=== PATIENT | male | born 1975 | race Caucasian/White ===

== ENCOUNTER 2018-02-13 11:32 | Emergency (ER) | payer BC, OTHER ==
[2018-02-13] MEDS ORDERED: 0.9 % SODIUM CHLORIDE 1,000 ML BAG IV ONE (11:42)
[2018-02-13] MEDS ORDERED: FENTANYL PF 100MCG/2ML VIAL IVP ONE ×2 (11:42→13:20)
[2018-02-13] MEDS ORDERED: ONDANSETRON HCL IV 4 MG/2 ML VIAL IVP ONE (11:42)
--- NOTE | 2018-02-13 11:44 | Emergency Department Record ---
History of Present Illness - General Chief Complaint: Fall Injury Stated Complaint: 20 foot fall Time Seen by Provider: 02/13/18 11:36 Source: Patient Mode of Arrival: Ambulatory Limitations: No limitations - History of Present Illness Initial Comments: 42 yo male presents ambulatory after a twenty foot fall from a ladder. He was up twenty feet climbing onto a roof and the ladder slid out from under him. He states he recalls the events. He is not on blood thinners. He does not think he hit his head but is unsure. His neck hurts but he states he has chronic neck and back pain. He has bilateral ankle pain, left knee, femur and hip pain into the pelvis. No current abdominal pain. He has been healthy in his usual state of health. MD Complaint: Fall -: Minutes(s) Fall From: Other (Ladder 20 feet) When Fall Occurred: Just prior to arrival Place Fall Occurred: Work Loss of Consciousness: None Prolonged Down Time?: No Symptoms Prior to Fall: None Location: Neck, Back, Pelvis Location - Extremities: Left: Forearm, Thigh, Knee, Ankle, Right: Ankle Severity: Moderate Quality: Aching Context: Other Associated Symptoms: Denies - [place] Coma Scale Eye Response: (4) Open spontaneously Motor Response: (6) Obeys commands Verbal Response: (5) Oriented [place] Total: 15 - Related Data Home Medications Medication Instructions Recorded Confirmed Last Taken No Home Med [NO HOME MEDS] 02/13/18 02/13/18 Unknown Allergies Allergy/AdvReac Type Severity Reaction Status Date / Time No Known Drug Allergies Allergy Verified 02/13/18 12:09 Review of Systems Constitutional: Denies: Chills, Fever, Weakness Eyes: Denies: Eye discharge ENT: Denies: Congestion, Throat pain Respiratory: Denies: Cough, Dyspnea Cardiovascular: Denies: Chest pain, Palpitations, Syncope Endocrine: Denies: Fatigue, Polydipsia, Polyuria Gastrointestinal: Denies: Abdominal pain, Diarrhea, Nausea, Vomiting Genitourinary: Denies: Dysuria, Frequency, Hematuria Musculoskeletal: Reports: Arthralgia, Back pain, Joint swelling, Myalgia, Neck pain Skin: Reports: Bruising Neurological: Denies: Headache, Numbness, Tremors, Weakness Psychiatric: Denies: Anxiety Hematological/Lymphatic: Denies: Easy bleeding, Easy bruising Physical Exam - General General Appearance: Alert, Oriented x3, Cooperative, No acute distress Limitations: No limitations - Head Head exam: Atraumatic, Normocephalic, Normal inspection Head exam detail: negative: Abrasion, Contusion, General tenderness, Hematoma - Eye Eye exam: Normal appearance, PERRL. negative: Conjunctival injection, Scleral icterus - ENT ENT exam: Normal exam, Mucous membranes moist, Normal orophraynx Ear exam: Normal external inspection Nasal Exam: Normal inspection Mouth exam: Normal external inspection Teeth exam: Normal inspection Throat exam: Normal inspection - Neck Neck exam: Normal inspection, Full ROM, Tenderness. negative: Meningismus - Respiratory Respiratory exam: Normal lung sounds bilaterally. negative: Accessory muscle use, Chest wall tenderness, Decreased breath sounds, Prolonged expiratory, Respiratory distress, Rhonchi, Stridor, Wheezes - Cardiovascular Cardiovascular Exam: Regular rate, Normal rhythm, Normal heart sounds Peripheral Pulses: 2+: Radial (R), Radial (L) - GI/Abdominal GI/Abdominal exam: Soft. negative: Distended, Guarding, Rebound, Rigid, Tenderness - Rectal Rectal exam: Deferred - exam: Deferred - Extremities Extremities exam: Joint swelling, Normal capillary refill, Tenderness. negative : Normal inspection Image of Full Body: 1 - tenderness, normal alignment 2 - tenderness, no deformity 3 - normal alignment, tender medial 4 - tender from IC to distal 1/3 of lateral thigh, mild swelling 5 - abrasion, tender, mild swelling 6 - tender, no step off - Back Back exam: Reports: Normal inspection - Neurological Neurological exam: Alert, Normal gait, Oriented X3. negative: Motor sensory deficit - Psychiatric Psychiatric exam: negative: Agitated, Anxious - Skin Skin exam: Dry, Intact, Normal color, Warm Course - Reevaluation(s) Reevaluation #1: Trauma Alert initiated given 20 foot fall. 02/13/18 11:35 02/13/18 12:25 No acute changes on the CBC,CMP,Lactic Acid, Alcohol 02/13/18 13:14 HCT is negative for acute injury The Chest CT is negative for acute injury The ABD/Pelvis CT no osseous injury. 2cm ill defined hypodense band like are high right liver lobe may represent liver small laceration Left Forearm is negative for acute injury 02/13/18 13:22 I explained to the patient even though the CT findings are small and mild any possible liver injury will need a trauma consultation that is not available at [facility] I recommend contacting a trauma center for a trauma consultation Radiology notified of need for copies [facility] notified need for trauma consult 02/13/18 13:36 I SW Trauma and the ED at [facility] Trauma PA and Dr Gómez The CT was explained as possible small laceration of 2cm high right side Trauma recommended TXA be given This was explained to the patient, recommendation for EMS STAT transfer to [facility] for Trauma evaluation. 02/13/18 13:45 Bilateral ankles XR negative Femur XR negative Medical Decision Making - Lab Data Result diagrams: 02/13/18 11:37 02/13/18 11:35 Disposition Disposition: Transfer Clinical Impression: Contusion, hip, Liver laceration, closed Fall Qualifiers: Encounter type: initial encounter Qualified Code(s): W19.XXXA - Unspecified fall, initial encounter Disposition: Acute Care Hospital Transfer Transfer To: [facility] Reason For Transfer: Fall, questionable liver laceration Accepting Physician: [facility] [place] Trauma Time Discussed w/Accepting Physician: 13:38 Condition: (2) Stable Forms: Patient Portal Access Time of Disposition: 13:21 Quality - Quality Measures Quality Measures: N/A - Blood Pressure Screening Does Patient Have Any of the Following: No Blood Pressure Classification: Pre-Hypertensive BP Reading Systolic Measurement: 128 Diastolic Measurement: 87 Screening for High Blood Pressure: < Pre-Hypertensive BP, F/U Documented > [ G8950] Pre-Hypertensive Follow-up Interventions: Referral to alternative/primary care provider.
[2018-02-13 11:55] LABS: BASO % 0.2 % (0-6); EOS % 0.4 % (0-6); GRAN % 64.7 % (47-80); HEMATOCRIT 43.9 % (42.0-52.0); HEMOGLOBIN 14.6 gm/dl (14.0-18.0); LYMPH % 25.6 % (16-45); MEAN CELL VOLUME 94.6 fl (81-97); MEAN CORPUSCULAR HEMOGLOBIN 31.5 pg (27-33); MEAN CORPUSCULAR HGB CONC 33.3 g/dl (32-36); MEAN PLATELET VOLUME 10.8 fl (7.4-10.4); MONO % 9.1 % (0-9); PLATELET COUNT 252 K/uL (130-400); RED BLOOD COUNT 4.64 M/uL (4.40-5.70); RED CELL DISTRIBUTION WIDTH 12.8 % (11.5-14.5); WHITE BLOOD COUNT W/O DIFF 9.3 K/uL (4.2-12.2)
[2018-02-13 12:03] LABS: BLOOD UREA NITROGEN 12 mg/dL (6-20); CREATININE 0.8 mg/dL (0.7-1.2); EST GLOMERULAR FILTRATION RATE > 60 mL/min
[2018-02-13 12:04] LABS: TOTAL PROTEIN 7.6 g/dL (6.6-8.7)
[2018-02-13 12:06] LABS: GLUCOSE,RANDOM 91 mg/dL (74-109); PROTHROMBIN TIME (PATIENT) 9.9 SECONDS (9.5-12.1)
[2018-02-13 12:08] LABS: ALT/SGPT 30 U/L (<41)
[2018-02-13 12:09] LABS: ALB/GLOB RATIO 1.6 (1.1-1.8); ALBUMIN 4.7 g/dL (4.0-5.0); ALKALINE PHOSPHATASE 57 U/L (40-129); AST/SGOT 29 U/L (10.0-50.0)
[2018-02-13 12:42] LABS: ABO GROUP O; ANTIBODY SCREEN NEGATIVE (NEGATIVE); RH TYPE NEGATIVE
[2018-02-13 12:50] LABS: URINE APPEARANCE CLEAR; URINE BILIRUBIN NEGATIVE (NEGATIVE); URINE BLOOD NEGATIVE (NEGATIVE); URINE COLOR YELLOW; URINE GLUCOSE (UA) NEGATIVE (NEGATIVE); URINE KETONE NEGATIVE (NEGATIVE); URINE LEUKOCYTE ESTERASE NEGATIVE (NEGATIVE); URINE NITRITE NEGATIVE (NEGATIVE); URINE PROTEIN NEGATIVE (NEGATIVE); URINE UROBILINOGEN 0.2 E.U./dL (0.20 - 1.00)
[2018-02-13] MEDS ORDERED: TRANEXAMIC ACID 1,000 MG in 0.9 % SODIUM CHLORIDE 500ML 500 ML IV ONE (13:31)
--- NOTE | 2018-02-16 14:31 | CT SCAN REPORT ---
EXAM: CT SCAN HEAD WO CONTRAST HISTORY: FALL FROM LADDER (20 FEET). TECHNIQUE: Routine noncontrast CT examination of the head. COMPARISON: No prior imaging of the head available for comparison. Same-day noncontrast CT of the cervical spine. FINDINGS: The ventricles and subarachnoid spaces are normal in size. No area of abnormally increased or decreased attenuation is noted throughout the brain substance. No abnormal extraaxial fluid collection nor skull fracture is seen. Several small retention cysts or less likely polyps are noted within the floor of the right maxillary sinus and there is a small retention cyst vs. polyp in the floor of the left maxillary sinus. The paranasal sinuses and mastoid air cells are otherwise clear. The orbits as visualized are unremarkable. IMPRESSION: 1. NO INTRACRANIAL ABNORMALITY NOR SKULL FRACTURE IDENTIFIED. 2. RETENTION CYSTS VS. POLYPS WITHIN THE MAXILLARY SINUSES. JOB NUMBER: [id number] [facility]TDD
--- NOTE | 2018-02-16 14:37 | CT SCAN REPORT ---
EXAM: CT SCAN CERVICAL SPINE WO CONTRAST HISTORY: 20 FOOT FALL FROM LADDER. LEFT-SIDED PAIN. TECHNIQUE: Thin-collimation helical CT examination of the cervical spine is performed in the axial plane without intravenous contrast. Coronal and sagittal reformatted images are generated and reviewed. COMPARISON: No prior imaging of the cervical spine available for comparison. Same day noncontrast CT examination of the head. Same day CT chest with contrast. FINDINGS: There is normal bone mineralization. The vertebral bodies are normal in alignment and height. No acute fracture, destructive bone lesion, nor prevertebral soft tissue swelling. There is posterior disc bulging and endplate spurring at the C6-C7 level with possible borderline stenosis. No gross osseous cervical spinal stenosis. The facet joints are grossly maintained. There is minor left neural foraminal narrowing at the C6-C7 level due to uncovertebral joint spurring. The neural foramina are otherwise patent. Three small retention cysts versus polyps are noted in the floor of the right maxillary sinus and there is a single retention cyst versus polyp in the floor of the left maxillary sinus. No cervical mass nor adenopathy is seen. Mild biapical lung scarring is present. IMPRESSION: 1. NO ACUTE FRACTURE, SUBLUXATION, NOR PREVERTEBRAL SOFT TISSUE SWELLING. MILD DEGENERATIVE CHANGES AT THE C6-C7 LEVEL. 2. RETENTION CYSTS VERSUS POLYPS WITHIN THE FLOORS OF THE MAXILLARY SINUSES. JOB NUMBER: [id number] MTDD
--- NOTE | 2018-02-16 14:46 | CT SCAN REPORT ---
EXAM: CT SCAN CHEST W CONTRAST HISTORY: LEFT-SIDED PAIN. 20-FOOT FALL FROM LADDER. TECHNIQUE: Contrast-enhanced helical CT examination of the chest, abdomen, and pelvis is performed including delayed images through the kidneys with 100 mL of Omnipaque-[address] see separate [address] abdomen and pelvis report. COMPARISON: Same day noncontrast CT of the cervical spine. Same day CT abdomen. FINDINGS: The heart is normal in size. The thoracic aorta is normal in caliber and without dissection. A small amount of residual thymic tissue is present. No mediastinal nor hilar mass/lymphadenopathy is seen. No mediastinal hematoma is identified. The central airways are clear. Mild biapical lung scarring is demonstrated. No lung consolidation is identified. Minor dependent atelectasis in each lung base. There are a few small calcified granulomata within the right lung with the largest in the posterior right lung base measuring 4 mm. No pleural or pericardial effusion. No definite osseous fracture. The adrenal glands are nonenlarged. There is a subtle, slightly irregularly marginated, linear hypodensity in the lateral aspect of the high right liver lobe extending towards the capsule. This measures approximately 10 x 20 mm. Diagnostic considerations include; small laceration or atypical hemangioma. No other focal hepatic lesion is seen. There is a too small to characterize 7 mm hypodense lesion in the anterolateral mid left kidney and a tiny 4 mm focus in the lateral right mid kidney. These are nonspecific but likely cysts. IMPRESSION: 1. NO DEFINITE CT EVIDENCE OF AN ACUTE INTRATHORACIC INJURY NOR ACUTE OSSEOUS FRACTURE. 2. SOMEWHAT LINEAR ILL-DEFINED HYPODENSITY IN THE HIGH RIGHT LIVER LOBE. THIS IS NONSPECIFIC. SMALL LACERATION IS NOT EXCLUDED. 3. TOO SMALL TO CHARACTERIZE HYPODENSE LESIONS WITHIN THE KIDNEYS ARE NONSPECIFIC BUT LIKELY CYSTS. JOB NUMBER: [id number] [facility]
--- NOTE | 2018-02-16 14:48 | RADIOLOGY REPORT ---
EXAM: FOREARM, LEFT HISTORY: PAIN POST 20-FOOT FALL FROM LADDER. TECHNIQUE: AP and lateral views of the left forearm. COMPARISON: None. ENCOUNTER: Initial. FINDINGS: There is normal bone mineralization. No fracture, dislocation, or destructive bone lesion is seen. The articular relations to the extent visualized are maintained. No focal soft tissue abnormality identified. IMPRESSION: NO ACUTE FRACTURE NOR DISLOCATION IDENTIFIED. JOB NUMBER: [id number] [facility]TDD
--- NOTE | 2018-02-16 14:49 | CT SCAN REPORT ---
EXAM: CT SCAN ABDOMEN/PELVIS W CONTRAST HISTORY: LEFT-SIDED PAIN. 20 FOOT FALL FROM LADDER. TECHNIQUE: Contrast-enhanced helical CT examination of the chest, abdomen, and pelvis is performed including delayed images through the kidneys with 100 mL of Omnipaque-[address] utilized. [address] see separate CT chest report. COMPARISON: No prior imaging of the abdomen nor pelvis available for comparison. FINDINGS: As seen on same-day CT chest examination, there is a somewhat linear irregularly-marginated hypodensity in the high lateral right liver lobe measuring approximately 2 cm in length extending toward the capsule. This measures approximately 8 mm in thickness. Diagnostic considerations include a small laceration/contusion or atypical hemangioma. No other focal lesion demonstrated within the liver. The spleen, pancreas, and adrenal glands are normal in appearance. Single too small to characterize hypodense lesions are noted within the kidneys. These are nonspecific but likely cysts. The gallbladder is unremarkable. No biliary ductal dilatation is seen. No intraabdominal nor retroperitoneal lymphadenopathy is identified. Minimal atherosclerosis of the distal abdominal aorta. The vasculature is otherwise normal in appearance. No intrapelvic mass, lymphadenopathy, or free pelvic fluid. No intrinsic urinary bladder abnormality noted. No gross bowel dilatation nor bowel wall thickening, though evaluation is somewhat limited by lack of oral contrast utilization. No free intraperitoneal air. No convincing acute osseous fracture. Linear lucency within the inferior left iliac bone is identified. A similar, though less pronounced, lucency is noted within the corresponding right iliac bone. These are consistent with nutrient foramina. No gross soft tissue hematoma is seen. IMPRESSION: 1. SUBTLE IRREGULARLY-MARGINATED LINEAR LUCENCY IN THE HIGH RIGHT LIVER LOBE. DIAGNOSTIC CONSIDERATIONS INCLUDE SMALL LACERATION/CONTUSION AND ATYPICAL HEMANGIOMA. 2. NO OTHER EVIDENCE OF ACUTE VISCERAL INJURY. 3. SINGLE TOO SMALL TO CHARACTERIZE HYPODENSE LESIONS IN THE KIDNEYS ARE NONSPECIFIC BUT LIKELY CYSTS. 4. NO CONVINCING ACUTE OSSEOUS INJURY. LINEAR LUCENCY WITHIN THE INFERIOR ILIAC BONES CONSISTENT WITH NUTRIENT FORAMINA. 5. NOT MENTIONED ABOVE IS POSTERIOR DISC BULGING AT THE C4-C5 LEVEL. JOB NUMBER: [id number] [facility]
--- NOTE | 2018-02-16 14:52 | RADIOLOGY REPORT ---
EXAM: ANKLE LEFT 3 VIEWS HISTORY: FALL FROM LADDER, ANKLE PAIN. TECHNIQUE: Three views of the left ankle. COMPARISON: None. FINDINGS: No acute fracture detected. The ankle mortise alignment appears intact. Small anterior tibiotalar osteophytes suggesting osteoarthrosis. IMPRESSION: NO EVIDENCE OF ACUTE LEFT ANKLE FRACTURE OR DISLOCATION. JOB NUMBER: [id number] [facility]
--- NOTE | 2018-02-16 14:53 | RADIOLOGY REPORT ---
EXAM: ANKLE RIGHT 3 VIEWS HISTORY: FALL FROM LADDER. TECHNIQUE: Three views of the right ankle. COMPARISON: None. FINDINGS: No acute fracture detected. Ankle mortise alignment appears intact. No significant degenerative changes. IMPRESSION: NO ACUTE OSSEOUS FINDINGS. JOB NUMBER: [id number] [facility]
--- NOTE | 2018-02-16 14:56 | RADIOLOGY REPORT ---
EXAM: FEMUR, LEFT HISTORY: FALL FROM LADDER, PAIN. TECHNIQUE: Frontal and lateral views of the left femur. COMPARISON: Same day CT abdomen and pelvis, 02/13/2018. FINDINGS: The left femur is incompletely visualized on this examination; the proximal third of the femur is not included on the field of view. This area is visualized on same day CT. No acute fracture involving the visualized portions of the femur. No definite radiographic soft tissue abnormality. Limited visualization of the knee without definite effusion or dislocation. IMPRESSION: NO ACUTE OSSEOUS FINDINGS INVOLVING THE VISUALIZED PORTIONS OF THE LEFT FEMUR. JOB NUMBER: [id number] [facility]TD[facility]
== END 2018-02-13 14:05 | disposition short-term general hospital (02) ==
LOC: ER 11:32
DX: S36.113A Laceration of liver, unspecified degree, initial encounter (principal); S70.02XA Contusion of left hip, initial encounter; S50.812A Abrasion of left forearm, initial encounter; M25.562 Pain in left knee; M54.2 Cervicalgia; M25.572 Pain in left ankle and joints of left foot; M25.571 Pain in right ankle and joints of right foot; M79.652 Pain in left thigh; M79.632 Pain in left forearm; W11.XXXA Fall on and from ladder, initial encounter; Y99.0 Civilian activity done for income or pay
CPT/HCPCS: 99285 ×2; 96376; 96365; 96375; 83605; 85025; 85730; 85610; 80053; 81003; 86900; 86901; 86850; 73610 ×2; 73552; 73090; 72125; 71260; 70450; 74177; G0480; Q9967; J2405; J3010; J3490; 80320; J7030; J7040

== ENCOUNTER 2018-05-08 04:39 | Emergency (ER) | payer OTHER ==
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
[2018-05-08] MEDS ORDERED: KETOROLAC 30 MG/ML VIAL IM ONE (05:04)
[2018-05-08 05:11] LABS: BASO % 0.2 % (0-6); EOS % 0.3 % (0-6); GRAN % 69.8 % (47-80); HEMOGLOBIN 14.1 gm/dl (14.0-18.0); LYMPH % 20.3 % (16-45); MEAN CELL VOLUME 91.9 fl (81-97); MEAN CORPUSCULAR HEMOGLOBIN 30.9 pg (27-33); MEAN CORPUSCULAR HGB CONC 33.6 g/dl (32-36); MEAN PLATELET VOLUME 10.2 fl (7.4-10.4); MONO % 9.4 % (0-9); PLATELET COUNT 300 K/uL (130-400); RED BLOOD COUNT 4.57 M/uL (4.40-5.70); RED CELL DISTRIBUTION WIDTH 12.8 % (11.5-14.5); WHITE BLOOD COUNT W/O DIFF 10.1 K/uL (4.2-12.2)
[2018-05-08 05:20] LABS: BLOOD UREA NITROGEN 14 mg/dL (6-20); CREATININE 0.8 mg/dL (0.7-1.2); EST GLOMERULAR FILTRATION RATE > 60 mL/min
[2018-05-08 05:21] LABS: TOTAL PROTEIN 7.1 g/dL (6.6-8.7)
[2018-05-08 05:21] LABS: URINE APPEARANCE CLEAR; URINE BILIRUBIN NEGATIVE (NEGATIVE); URINE BLOOD TRACE-I (NEGATIVE); URINE COLOR YELLOW; URINE GLUCOSE (UA) NEGATIVE (NEGATIVE); URINE KETONE NEGATIVE (NEGATIVE); URINE LEUKOCYTE ESTERASE NEGATIVE (NEGATIVE); URINE NITRITE NEGATIVE (NEGATIVE); URINE PROTEIN NEGATIVE (NEGATIVE); URINE UROBILINOGEN 0.2 E.U./dL (0.20 - 1.00)
[2018-05-08 05:22] LABS: URINE BACTERIA NONE SEEN; URINE EPITHELIAL CELLS 0 - 2 (FEW); URINE RBC 0 - 2 (NONE SEEN); URINE WBC 0 - 2 (0-2/hpf)
[2018-05-08 05:23] LABS: GLUCOSE,RANDOM 99 mg/dL (74-109)
[2018-05-08 05:25] LABS: ALT/SGPT 21 U/L (<41)
[2018-05-08 05:26] LABS: ALB/GLOB RATIO 1.7 (1.1-1.8); ALBUMIN 4.5 g/dL (4.0-5.0); ALKALINE PHOSPHATASE 50 U/L (40-129); AST/SGOT 26 U/L (10.0-50.0)
[2018-05-08] MEDS ORDERED: ONDANSETRON HCL IV 4 MG/2 ML VIAL IVP ONE (06:27)
[2018-05-08] MEDS ORDERED: HYDROMORPHONE HCL 2 MG/ML VIAL IVP ONE (06:27)
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
== END 2018-05-08 07:00 | disposition home or self-care (01) ==
LOC: ER 04:39
DX: S82.142A Displaced bicondylar fracture of left tibia, initial encounter for closed fracture (principal); M79.642 Pain in left hand; V40.5XXA Car driver injured in collision with pedestrian or animal in traffic accident, initial encounter
CPT/HCPCS: 99285 ×2; 96374; 96372; 96375; 85025; 80053; 81001; 73130; 73562; J1885; J2405; J1170